=== PATIENT | male | born 1950 | race Caucasian/White ===

== ENCOUNTER 2023-03-24 08:48 | Outpatient (OUT) | payer MEDICARE, BC, SELFPAY ==
--- NOTE | 2023-03-24 08:59 | XR_ITS ---
[address] [address] Patient Name: JONATHAN ALMONTE MRN: [id number] date: 1950 Sex: M Assigned Patient Location: RAD Current Patient Location: [facility] Accession/Order Number: [id number] Exam Date: 03/24/2023 08:59 Report Date: 03/24/2023 09:54 At the request of: ANTONIO ROJAS Procedure: XR ankle RT min 3V EXAM: XR ankle RT min 3V HISTORY: RIGHT ANKLE PAIN COMPARISON: None. TECHNIQUE: 3 views FINDINGS/IMPRESSION: Status post total talus arthroplasty. No acute fracture or dislocation. Soft issue swelling. Electronically authenticated by: WADE LEONARDO Date: 03/24/2023 09:54
== END 2023-03-24 08:49 ==
PROVIDERS: PCP Family Medicine; Visit Provider Podiatrist Foot & Ankle Surgery
DX: M19.071 Primary osteoarthritis, right ankle and foot (principal)
CPT/HCPCS: 73610

== ENCOUNTER 2023-09-28 15:29 | Outpatient (REF) | payer MEDICARE, BC, SELFPAY | END 2023-09-29 15:27 | disposition home or self-care (01) | LOC: LAB 15:29 | PROVIDERS: PCP Family Medicine; Visit Provider Surgery | DX: D48.5 Neoplasm of uncertain behavior of skin (principal) | CPT/HCPCS: 88305 ==

== ENCOUNTER 2024-03-22 08:56 | Outpatient (OUT) | payer MEDICARE, BC, SELFPAY ==
--- NOTE | 2024-03-22 | XR_ITS ---
The [address] [address] Patient Name: JONATHAN ALMONTE MRN: [id number] date: 1950 Sex: M Assigned Patient Location: Current Patient Location: Accession/Order Number: [id number] Exam Date: 03/22/2024 09:56 Report Date: 03/23/2024 07:35 At the request of: ANTONIO ROJAS Procedure: XR ankle RT min 3V PROCEDURE: XR ankle RT min 3V HISTORY: RIGHT ANKLE PAIN COMPARISON: XR ankle right 03/24/2023 FINDINGS: BONES:Prior prosthetic replacement of the talus. No evidence of hardware fracture loosening. No bone fracture dislocation. Moderate size calcaneal plantar spur. SOFT TISSUES:Subcutaneous edema of the visible lower right leg. EFFUSION:None visible. OTHER: Negative. XR/XR ankle RT min 3V IMPRESSION: 1. Stable surgical changes without evidence of hardware failure or change in alignment. 2. Subcutaneous edema. Electronically authenticated by: AMA HORN Date: 03/23/2024 07:35
--- OUTSIDE RECORDS SUMMARY | 2024-03-22 08:59 | XMS_ITS | CCD ---
Author Organization [facility] Care Team Providers Care Household Chores Name Role Phone DR AMA HORN Consulting Unavailable ANTONIO ROJAS Attending Unavailable ANTONIO ROJAS Admitting Kosta RUBALCAVA ., DR PATEL Primary Care Unavailable ANTONIO ROJAS Consulting Unavailable Edwin Rubalcava Primary Care Physician Mynor DUARTE Attending Unavailable Mynor DUARTE Attending Unavailable Mynor DUARTE Attending Unavailable Medications Current Medications Medication Drug Class(es) Dates Sig (Normalized) Sig (Original) Ocuvite (3 sources) Vitamin C Start: 09-01-2023 take 1 tablet by mouth once daily Ocuvite 1 tab(s), Oral, Daily, Refill(s) 0 Start Date: 09/01/23 Status: Ordered Glucosamine (3 sources) Start: 09-01-2023 glucosamine Refills(s) 0 Start Date: 09/01/23 Status: Ordered Problems Active Problems Problem Classification Problem Date Documented Date Episodic/Chronic Neoplasms of unspecified nature or uncertain behavior (6 sources) Neoplasm of uncertain behavior of skin; Translations: [Neoplasm of uncertain behavior of skin] Onset: 09-07-2023 Episodic Osteoarthritis (3 sources) Osteoarthritis of knee 02-01-2015 Chronic Other nutritional; endocrine; and metabolic disorders (3 sources) Body mass index 30+ - obesity 09-07-2023 Chronic Other nutritional; endocrine; and metabolic disorders (3 sources) Obesity 09-01-2023 Chronic Unclassified (3 sources) 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 Past or Other Problems Problem Classification Problem Date Documented Da te Episodic/Chronic Other non-traumatic joint disorders (4 sources) Pain in right ankle and joints of right foot; Translations: [PAIN IN RIGHT ANKLE] Onset: 04-01-2022 Episodic Results Test Name Value Interpretation Reference Range Facil ity Pathology Noteon 10-12-2023 Pathology Note [id number] .00TIFF [facility] Ambulatory Visit Summaryon 1 12-06-2022 Ambulatory Visit Summary JONATHAN ALMONTE :1950 Visit Date:10/05/2023 Ambulatory Visit Instructions Your Diagnosis Neoplasm of uncertain behavior of skin of nose Your Care Team Attending Physician - GERALD BLUNT, Mynor Davalos Primary Care Physician - Edwin Rubalcava MD This Is Your Medications List Contact prescribing physician if questions or concerns glucosamine multivitamin with minerals (Ocuvite) Procedures Performed Excision of skin lesion (09/28/2023), right knee arthroscopy, medial meniscectomy, chondroplasty medial and patellofemoral (02/13/2015), Arthroplasty of right ankle, Repair of left inguinal hernia. Medications What How Much When Instructions Unchanged glucosamine Contact prescribing physician if questions or concerns Unchanged multivitamin with minerals (Ocuvite) 1 Tablets By Mouth Every day Contact prescribing physician if questions or concerns Allergies No Known Allergies Problems Ongoing - Any problem that you are currently receiving treatment for. BMI 31.0-31.9,adult Neoplasm of uncertain behavior of skin of nose OA - Osteoarthritis of knee Obesity Pigmented nevus Patient Survey You may receive a survey via text or e-mail asking about your office visit. Please share your experience with us by completing your survey. We appreciate your feedback and thank you for choosing us for your care. [facility] General Surgery Office/Clini c Noteon 10-05-2023 General Surgery Office/Clinic Note Chief Complaint f/u in-office excisional biopsy HPI Staff 7 day post operative follow up post in-office excisional biopsy right nares. Denies discomfort, bleeding or drainage. Sutures intact. History of Present Illness 1 week s/p excision raised lesion right nares; pathology pending; Review of Systems ROS - Provider Constitutional: no fever, no sweats, no weight loss. Eyes: no glasses, no blurred vision, no visual loss. ENMT: no dentures, no hoarseness, no swallowing difficulties, no hearing loss, no ear infection(s), no nose bleeds. Cardiovascular: normal blood pressure, no chest pain, regular heartbeat, no heart murmur. Respiratory: no shortness of breath, no cough, no asthma, no wheezing. Gastrointestinal: no nausea, no vomiting, no diarrhea, no constipation, no blood in stool, no change in bowel habits, no abdominal pain, no hepatitis. Genitourinary: no kidney stones, no urine infection, no dysuria. Musculoskeletal: no pain, no weakness. Skin: no changing moles, no rash, no skin lumps. Neurologic: no seizures, no epilepsy, no headache. Psychiatric: no emotional or psychiatric problem. Heme/Lymph: no bleeding problems, no anemia, no blood clots, no transfusions. Allergy/Immunologic: no swollen lymph nodes/glands, no IV drug abuse. Other: Additional ROS info: Except as noted in the above Review of Systems and in the History of Present Illness, all other systems have been reviewed and are negative or noncontributory. Physical Exam skin: incision well-healed, no erythema or drainage, no ecchymosis. Assessment/Plan 1. Neoplasm of uncertain behavior of skin of nose (D48.5: Neoplasm of uncertain behavior of skin) sutures removed, doing well; will call patient with pathology results, call sooner if problems/questions. Follow-up No qualifying data available Problem List/Past Medical History Ongoing BMI 31.0-31.9,adult Neoplasm of uncertain behavior of skin of nose OA - Osteoarthritis of knee Obesity Pigmented nevus Historical No qualifying data Procedure/Surgical History Excision of skin lesion (09/28/2023), right knee arthroscopy, medial meniscectomy, chondroplasty medial and patellofemoral (02/13/2015), Arthroplasty of right ankle, Repair of left inguinal hernia. Medications glucosamine Ocuvite, 1 tab(s), Oral, Daily Allergies No Known Allergies Social History Alcohol Current, Beer, Daily, 1 drinks/episode average. 2.00 drinks/episode maximum. Previous treatment: None. Alcohol use interferes with work or home: No. Drinks more than intended: Yes. Others hurt by drinking: No. Ready to change: No. Household alcohol concerns: No., 02/01/2015 Substance Abuse - Denies Substance Abuse, 02/01/2015 Tobacco - Denies Tobacco Use, 02/01/2015 Never (less than 100 in lifetime) Tobacco Use:. Never Smokeless Tobacco Use:., 09/07/2023 Family History Gastric cancer: Father. Heart disease: Mother. Immunizations Vaccine Date Status Comments influenza virus vaccine, inactivated - Not Given Patient Refuses Normal [facility] Comment on above: Result Comment: Elec tronically Signed By: GERALD BLUNT, Mynor Herring\Date and Time Signed: 10/05/23 15:49 EST General Surgery Office/Clini c Noteon 09-28-2023 General Surgery Office/Clinic Note Chief Complaint in-office excisional biopsy HPI Staff Presents for in-office excisional biopsy right nostril. History of Present Illness patient here for excisional biopsy painful right nares lesion; no change since recent evaluation. Review of Systems ROS - Provider Constitutional: no fever, no sweats, no weight loss. Eyes: no glasses, no blurred vision, no visual loss. ENMT: no dentures, no hoarseness, no swallowing difficulties, no hearing loss, no ear infection(s), no nose bleeds. Cardiovascular: normal blood pressure, no chest pain, regular heartbeat, no heart murmur. Respiratory: no shortness of breath, no cough, no asthma, no wheezing. Gastrointestinal: no nausea, no vomiting, no diarrhea, no constipation, no blood in stool, no change in bowel habits, no abdominal pain, no hepatitis. Genitourinary: no kidney stones, no urine infection, no dysuria. Musculoskeletal: no pain, no weakness. Skin: no changing moles, no rash, yes skin lumps. Neurologic: no seizures, no epilepsy, no headache. Psychiatric: no emotional or psychiatric problem. Heme/Lymph: no bleeding problems, no anemia, no blood clots, no transfusions. Allergy/Immunologic: no swollen lymph nodes/glands, no IV drug abuse. Other: Additional ROS info: Except as noted in the above Review of Systems and in the History of Present Illness, all other systems have been reviewed and are negative or noncontributory. Physical Exam skin: 5 mm raised, exophytic, lesion right nares; no ulceration or bleeding Procedure patient brought to the procedure room, placed in supine position, area prepped and draped in sterile fashion; anesthetized with 1 % lidocaine; lesion excised in elliptical fashion down to subcutaneous fat, total length 6 mm; closed with interrupted 5-0 nylon sutures; tolerated well; ebl < 3 ml; sterile dressing applied. Assessment/Plan 1. Neoplasm of uncertain behavior of skin of nose (D48.5: Neoplasm of uncertain behavior of skin) excised under local anesthesia, tolerated well; f/u in 7-10 days for suture removal/pathology results; call sooner if problems/questions. Follow-up No qualifying data available Problem List/Past Medical History Ongoing BMI 31.0-31.9,adult Neoplasm of uncertain behavior of skin of nose OA - Osteoarthritis of knee Obesity Pigmented nevus Historical No qualifying data Procedure/Surgical History right knee arthroscopy, medial meniscectomy, chondroplasty medial and patellofemoral (02/13/2015), Arthroplasty of right ankle, Repair of left inguinal hernia. Medications glucosamine Ocuvite, 1 tab(s), Oral, Daily Allergies No Known Allergies Social History Alcohol Current, Beer, Daily, 1 drinks/episode average. 2.00 drinks/episode maximum. Previous treatment: None. Alcohol use interferes with work or home: No. Drinks more than intended: Yes. Others hurt by drinking: No. Ready to change: No. Household alcohol concerns: No., 02/01/2015 Substance Abuse - Denies Substance Abuse, 02/01/2015 Tobacco - Denies Tobacco Use, 02/01/2015 Never (less than 100 in lifetime) Tobacco Use:. Never Smokeless Tobacco Use:., 09/07/2023 Family History Gastric cancer: Father. Heart disease: Mother. Immunizations Vaccine Date Status Comments influenza virus vaccine, inactivated - Not Given Patient Refuses Normal [facility] Comment on above: Result Comment: Elec tronically Signed By: GERALD BLUNT, Mynor Davalos\.br\Date and Time Signed: 09/28/23 15:28 EST Facesheeton 09-08-2023 Facesheet [id number] 1.00TIFF Normal [facility] Ambulatory Visit Summaryon 1 11-07-2022 Ambulatory Visit Summary JONATHAN ALMONTE :1950 Visit Date:09/07/2023 Ambulatory Visit Instructions Your Care Team Attending Physician - GERALD BLUNT, Mynor Davalos Primary Care Physician - Edwin Rubalcava MD This Is Your Medications List Contact prescribing physician if questions or concerns glucosamine multivitamin with minerals (Ocuvite) Procedures Performed right knee arthroscopy, medial meniscectomy, chondroplasty medial and patellofemoral (02/13/2015), Arthroplasty of right ankle, Repair of left inguinal hernia. Discharge Vitals Heart Rate (Peripheral) 76 Respiratory Rate 16 Blood Pressure 144/86 Height 182.8 cm Height 72 in Weight 103.7 kg Weight 228.14 lb BMI 31.03 Medications What How Much When Instructions Unchanged glucosamine Contact prescribing physician if questions or concerns Unchanged multivitamin with minerals (Ocuvite) 1 Tablets By Mouth Every day Contact prescribing physician if questions or concerns Medications and Immunizations Administered Not Given influenza virus vaccine, inactivated, Patient Refuses Allergies No Known Allergies Problems Ongoing - Any problem that you are currently receiving treatment for. BMI 31.0-31.9,adult OA - Osteoarthritis of knee Obesity Pigmented nevus Patient Survey You may receive a survey via text or e-mail asking about your office visit. Please share your experience with us by completing your survey. We appreciate your feedback and thank you for choosing us for your care. [facility] Physician Referralon 023 Physician Referral [id number] .00TIFF [facility] Vital Signs Date Time Vital Sign Value Performing Clinician Farooq jones 09-07-2023 13:38-0500 Blood Pressure Location Mynor Gale [facility] 09-07-2023 13:38-0500 Diastolic blood pressure 86 mm[Hg] Mynor DUARTE [facility] 09-07-2023 13:38-0500 Heart rate 76 /min Mynor DUARTE [facility] 09-07-2023 13:38-0500 Respiratory rate 16 /min Mynor DUARTE [facility] 09-07-2023 13:38-0500 Systolic blood pressure 144 mm[Hg] Mynor DUARTE [facility] Encounters Encounter Date Encounter Type Care Provider Facility Start: 10-05-2023 End: 10-06-2023 ambulatory Mynor DUARTE Facility:[facility] Start: 10-05-2023 End: 10-05-2023 Patient encounter procedure Mynor R VIANEYL [facility] Start: 09-28-2023 End: 09-29-2023 ambulatory Mynor R NILL Facility:[facility] Start: 09-28-2023 End: 09-28-2023 Patient encounter procedure Mynor R NILL [facility] Start: 09-07-2023 End: 09-08-2023 ambulatory Mynor R NILL Facility: [facility] Start: 09-07-2023 End: 09-07-2023 Patient encounter procedure Mynor R NILL [facility] Start: 09-02-2023 ambulatory Mynor DUARTE Facility:[facility] Start: 08-25-2023 ambulatory Mynor DUARTE Facility:[facility] Start: 04-01-2022 End: 04-02-[address] AMA HORN Facility:[facility] Procedures Date Procedure Procedure Detail Performing Clinician Start: 09-28-2023 Excision of lesion of skin Mynor WINTERSL Comment on above: right nares Start: 02-13-2015 right knee arthrosco py, medial meniscectomy, chondroplasty medial and patellofemoral Mynor VIANEYL Arthroplasty of right ankle Mynor WINTERSL Repair of left ingui nal hernia Mynor WINTERSL Immunizations Immunization Date Immunization Notes Care Provider Fa cility NEGATED: Highlighted row has not occurred!09-07-2023 influenza virus vaccine, unspecified formulation Mynor WINTERSL [facility] Payers Date Payer Category Payer Medicare [id number] 1958 Unknown [id number] 1950 Unknown [id number] 1950 Unknown [id number] 1950 Unknown [id number] [id number] 1950 Unknown [id number] [id number] Medicare [id number] Unknown [id number] Social History Date Type Detail Facility Start: 09-07-2023 Tobacco smoking status Never s moked tobacco (finding) [facility] Tobacco smoking status Never Gener [facility] Sex Assigned At Male [facility] Functional Status Date Assessment Result Facility 09-07-2023 Functional Status N/A [facility] Clinical Note 09-07-2023 Note Date & Type Note Facility 09-07-2023 Note Chief Complaint consultation for skin lesion HPI Staff 73 year old male presents on consultation fro Dr. Rubalcava for skin lesion to right nostril. Reports he noted lesion approximately 4-6 weeks ago. Denies change since first noted. Occasional soreness and bleeding when bumped. History of Present Illness 73 yo male referred for sore lesion right nostril; patient reports 5 week h/o raised irregular nodule, sore if he rubs it, bleeds occasionally; no increase in size; no personal h/o skin cancer; h/o extensive sun exposure; no asa or NSAID use; no tobacco use. Review of Systems PHQ Score Initial Depression Screen Score: 0 SCORE ROS - Provider Constitutional: no fever, no sweats, no weight loss. Eyes: no glasses, no blurred vision, no visual loss. ENMT: no dentures, no hoarseness, no swallowing difficulties, no hearing loss, no ear infection(s), no nose bleeds. Cardiovascular: normal blood pressure, no chest pain, regular heartbeat, no heart murmur. Respiratory: no shortness of breath, no cough, no asthma, no wheezing. Gastrointestinal: no nausea, no vomiting, no diarrhea, no constipation, no blood in stool, no change in bowel habits, no abdominal pain, no hepatitis. Genitourinary: no kidney stones, no urine infection, no dysuria. Musculoskeletal: no pain, no weakness. Skin: no changing moles, no rash, no skin lumps. Neurologic: no seizures, no epilepsy, no headache. Psychiatric: no emotional or psychiatric problem. Heme/Lymph: no bleeding problems, no anemia, no blood clots, no transfusions. Allergy/Immunologic: no swollen lymph nodes/glands, no IV drug abuse. Other: Additional ROS info: Except as noted in the above Review of Systems and in the History of Present Illness, all other systems have been reviewed and are negative or noncontributory. Physical Exam Vitals & Measurements HR: 76(Peripheral) RR: 16 BP: 144/86 HT: 72 in HT: 182.8 cm WT: 103.7 kg WT: 228.14 lb BMI: 31.03 HEENT: normal conjunctiva, sclera clear, no scleral icterus, EOM intact, PERRLA, oral mucosa moist without lesions. Neck: trachea midline, no mass, symmetric, no thyromegaly or nodules, no adenopathy Musculoskeletal: normal gait, digits and nails without infection, nodes, cyanosis, clubbing. Skin: no rashes, 4 mm raised, keratotic lesion right nares, no ulceration or scab; no pigmentation no ulcers, no subcutaneous nodules, induration. Psychiatric/Neuro: oriented to time, place, person, judgement normal, affect appropriate for age, insight intact, no focal deficits. Tests: review of old records completed , Discussed surgical options, risks, and possible complications with patient. Assessment/Plan 1. Neoplasm of uncertain behavior of skin of nose (D48.5: Neoplasm of uncertain behavior of skin) plan excisional biopsy under local anesthesia in the office for definitive diagnosis and treatment, informed consent obtained. Follow-up No qualifying data available Problem List/Past Medical History Ongoing BMI 31.0-31.9,adult Neoplasm of uncertain behavior of skin of nose OA - Osteoarthritis of knee Obesity Pigmented nevus Historical No qualifying data Procedure/Surgical History right knee arthroscopy, medial meniscectomy, chondroplasty medial and patellofemoral (02/13/2015), Arthroplasty of right ankle, Repair of left inguinal hernia. Medications glucosamine Ocuvite, 1 tab(s), Oral, Daily Allergies No Known Allergies Social History Alcohol Current, Beer, Daily, 1 drinks/episode average. 2.00 drinks/episode maximum. Previous treatment: None. Alcohol use interferes with work or home: No. Drinks more than intended: Yes. Others hurt by drinking: No. Ready to change: No. Household alcohol concerns: No., 02/01/2015 Substance Abuse - Denies Substance Abuse, 02/01/2015 Tobacco - Denies Tobacco Use, 02/01/2015 Never (less than 100 in lifetime) Tobacco Use:. Never Smokeless Tobacco Use:., 09/07/2023 Family History Gastric cancer: Father. Heart disease: Mother. Immunizations Vaccine Date Status Comments influenza virus vaccine, inactivated - Not Given Patient Refuses [facility] Comment on above: Result Comment: Elec tronically Signed By: GERALD BLUNT, Mynor Davalos\.br\Date and Time Signed: 09/07/23 14:00 EST Clinical Note 04-02-2022 Note Date & Type Note Facility 04-02-2022 Note PROCEDURE: XR ANKLE RT MIN 3 VIEWS HISTORY: Pain of right ankle joint COMPARISON: XR ankle right 04/03/2021 FINDINGS: BONES:Prior prosthetic replacement of the talus; no evidence of hardware fracture, loosening, or change in alignment. No bone fracture dislocation. Prominent calcaneal plantar spur. SOFT TISSUES:No visible soft tissue swelling. EFFUSION:None visible. OTHER: Negative. IMPRESSION: 1. Stable surgical changes without evidence of hardware failure. Electronically authenticated by: AMA HORN Date: 2022-04-02 08:38 [facility] Evaluation + Plan note Note Date & Type Note Facility Evaluation + Plan note Future Appointments Appointment Date:09/28/2023 03:00:00 PM Scheduled Provider:Mynor DUARTE MD Location:[facility] Appointment Type: Procedure 30 [facility] Evaluation + Plan note Note Date & Type Note Facility Evaluation + Plan note Future Appointments Appointment Date:10/05/2023 03:40:00 PM Scheduled Provider:Mynor DUARTE MD Location:[facility] Appointment Type: Established 15 [facility] Hospital course Narrative Note Date & Type Note Facility Hospital course Narrative No data available for this section [facility] Discharge instructions Note Date & Type Note Facility Hospital Discharge instructions No data available for this section [facility] Progress note Note Date & Type Note Facility Progress note No data available for this section [facility] Summary Purpose Family History No Family History Records Found No data available for this section No data available for this section No data available for this section No Family History Records Found Advance Directives No Advanced Directives Records FoundNo Advanced Directives Records Found Additional Source Comments (unrecognized sect ion and content) No Status Records FoundNo Status Records Found INFORMATION SOURCE (unrecogn ized section and content) DATE CREATED AUTHOR 03/26/2023 [facility] DATE CREATED AUTHOR AUTHOR'S ORGANIZ ATION 10/13/2023 [facility] Patient Care team informatio n (unrecognized section and content) Personnel Name: Edwin Rubalcava MD Address: Address: [address] [place] [address] Personnel Name: Edwin Rubalcava MD Address: Address: [address] [place] [address] Personnel Name: Edwin Rubalcava MD Address: Address: [address] [place] [address] FOR RECORDS PERTAINING TO PATIENTS WHO ARE OR HAVE BEEN ENROLLED IN A CHEMICAL DEPENDENCY/SUBSTANCEABUSE PROGRAM, SOME INFORMATION MAY BE OMITTED. This clinical summary was aggregated from multiple sources. Caution should be exercised in using it in the provision of clinical care. This summary normalizes information from multiple sources, and as a consequence, information in this document may materially change the coding, format and clinical context of patient data. In addition, data may be omitted in some cases. CLINICAL DECISIONS SHOULD BE BASED ON THE PRIMARY CLINICAL RECORDS. [facility]. provides no warranty or guarantee of the accuracy or completeness of information in this document.
== END 2024-03-22 08:57 | disposition home or self-care (01) ==
LOC: EC 08:56
PROVIDERS: PCP Family Medicine; Visit Provider Podiatrist Foot & Ankle Surgery
DX: M19.071 Primary osteoarthritis, right ankle and foot (principal); Z96.661 Presence of right artificial ankle joint
CPT/HCPCS: 73610

== ENCOUNTER 2024-08-23 10:37 | Outpatient (OUT) | payer MEDICARE, BC, SELFPAY ==
--- NOTE | 2024-08-23 | XR_ITS ---
[address] [address] Patient Name: JONATHAN ALMONTE MRN: [id number] date: 1950 Sex: M Assigned Patient Location: [facility] Current Patient Location: PT Accession/Order Number: [id number] Exam Date: 08/23/2024 10:50 Report Date: 08/25/2024 12:54 At the request of: ANTONIO ROJAS Procedure: XR ankle RT min 3V PROCEDURE: XR ankle RT min 3V, XR foot RT min 3V HISTORY: RIGHT ANKLE PAIN ; right foot pain; right first toe injury; swelling COMPARISON: XR ankle 03/22/2024 FINDINGS: BONES:Prior prosthetic replacement of the talus; no appreciable hardware fracture or displacement. Moderate degenerative changes of the first tarsal phalangeal joint. Moderate degenerative changes of the first toe interphalangeal joint. Multifocal mild degenerative joint disease. SOFT TISSUES:Soft tissue swelling first toe. EFFUSION:None visible. OTHER: Negative. XR/XR ankle RT min 3V IMPRESSION: 1. 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 2. Mild-moderate degenerative changes of the midfoot and forefoot, most notable involving the first toe. 3. No acute bone abnormality. Electronically authenticated by: AMA HORN Date: 08/25/2024 12:54
--- NOTE | 2024-08-23 | XR_ITS ---
[address] [address] Patient Name: JONATHAN ALMONTE MRN: [id number] date: 1950 Sex: M Assigned Patient Location: [facility] Current Patient Location: Accession/Order Number: [id number] Exam Date: 08/23/2024 10:50 Report Date: 08/25/2024 12:54 At the request of: ANTONIO ROJAS Procedure: XR foot RT min 3V PROCEDURE: XR ankle RT min 3V, XR foot RT min 3V HISTORY: RIGHT ANKLE PAIN ; right foot pain; right first toe injury; swelling COMPARISON: XR ankle 03/22/2024 FINDINGS: BONES:Prior prosthetic replacement of the talus; no appreciable hardware fracture or displacement. Moderate degenerative changes of the first tarsal phalangeal joint. Moderate degenerative changes of the first toe interphalangeal joint. Multifocal mild degenerative joint disease. SOFT TISSUES:Soft tissue swelling first toe. EFFUSION:None visible. OTHER: Negative. XR/XR foot RT min 3V IMPRESSION: 1. 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 2. Mild-moderate degenerative changes of the midfoot and forefoot, most notable involving the first toe. 3. No acute bone abnormality. Electronically authenticated by: AMA HORN Date: 08/25/2024 12:54
--- OUTSIDE RECORDS SUMMARY | 2024-08-23 10:53 | XMS_ITS | CCD ---
Author Organization [facility] Care Team Providers Care Breakfast And Room Attendant Name Role Phone DR AMA HORN Consulting [...] Facil ity Pathology Noteon 10-12-2023 Pathology Note [id number]#1 .00TIFF [facility] Ambulatory Visit Summaryon 1 12-06-2022 Ambulatory Visit [...] you for choosing us for your care. [facility] General Surgery Office/Clini c Noteon 10-05-2023 General [...] - Not Given Patient Refuses Normal [facility] Comment on above: Result Comment: Elec tronically [...] inactivated - Not Given Patient Refuses Normal [facility] Comment on above: Result Comment: Elec tronically Signed By: GERALD BLUNT, Mynor Davalos\.br\Date and Time Signed: 09/28/23 15:28 EST Facesheeton 09-08-2023 Facesheet [id number]# 1.00TIFF Normal [facility] Ambulatory Visit Summaryon 1 11-07-2022 Ambulatory Visit [...] you for choosing us for your care. [facility] Physician Referralon 023 Physician Referral [id number]#1 .00TIFF [facility] Vital Signs Date Time Vital Sign Value Performing Clinician Farooq jones 09-07-2023 13:38-0500 Blood Pressure Location Mynor Gale [facility] 09-07-2023 13:38-0500 Diastolic blood pressure 86 mm[Hg] Mynor DUARTE [facility] 09-07-2023 13:38-0500 Heart rate 76 /min Mynor DUARTE [facility] 09-07-2023 13:38-0500 Respiratory rate 16 /min Mynor DUARTE [facility] 09-07-2023 13:38-0500 Systolic blood pressure 144 mm[Hg] Mynor DUARTE [facility] Encounters Encounter Date Encounter Type Care Provider Facility Start: 10-05-2023 End: 10-06-2023 ambulatory Mynor DUARTE Facility:[facility] Start: 10-05-2023 End: 10-05-2023 Patient encounter procedure Mynor R VIANEYL [facility] Start: 09-28-2023 End: 09-29-2023 ambulatory Mynor R NILL Facility:[facility] Start: 09-28-2023 End: 09-28-2023 Patient encounter procedure Mynor R NILL [facility] Start: 09-07-2023 End: 09-08-2023 ambulatory Mynor R NILL Facility: [facility] Start: 09-07-2023 End: 09-07-2023 Patient encounter procedure Mynor R NILL [facility] Start: 09-02-2023 ambulatory Mynor DUARTE Facility:[facility] [...] vaccine, unspecified formulation Mynor WINTERSL [facility] Payers Date Payer Category Payer Medicare [id number] 1958 Unknown [id number] 1950 Unknown [id number] 2.16.84 [id number] 1950 Unknown [id number] 2.16.8 [id number] 1950 Unknown [id number] 2.16.8 [id number] 1950 Unknown [id number] 2.16.8 [id number] Medicare [id number] Unknown [id number] Social History Date Type Detail Facility Start: 09-07-2023 Tobacco smoking status Never s moked tobacco (finding) [facility] Tobacco smoking status Never Gener al [facility] Sex Assigned At Male [facility] Functional Status Date Assessment Result Facility 09-07-2023 Functional Status N/A [facility] Clinical Note 09-07-2023 Note Date & Type [...] vaccine, inactivated - Not Given Patient Refuses [facility] Comment on above: Result Comment: Elec tronically [...] authenticated by: AMA HORN Date: 2022-04-02 08:38 [facility] Evaluation + Plan note Note Date & Type Note Facility Evaluation + Plan note Future Appointments Appointment Date:09/28/2023 03:00:00 PM Scheduled Provider:Mynor DUARTE MD Location:[facility] Appointment Type: Procedure 30 [facility] Evaluation + Plan note Note Date & Type Note Facility Evaluation + Plan note Future Appointments Appointment Date:10/05/2023 03:40:00 PM Scheduled Provider:Mynor DUARTE MD Location:[facility] Appointment Type: Established 15 [facility] Hospital course Narrative Note Date & Type Note Facility Hospital course Narrative No data available for this section [facility] Discharge instructions Note Date & Type [...] DATE CREATED AUTHOR AUTHOR'S ORGANIZ ATION 10/13/2023 [facility] Patient Care team informatio n (unrecognized section and content) Personnel Name: Edwin Rubalcava MD Address: Address: [address] [place] [address] Personnel Name: Edwin Rubalcava MD Address: Address: [address] [place] [address] Personnel Name: Edwin Rubalcava MD Address: Address: [address] [place] [address] FOR RECORDS PERTAINING TO PATIENTS WHO ARE [...] BE BASED ON THE PRIMARY CLINICAL RECORDS. [facility] [employer] [facility]. provides no warranty or guarantee of the accuracy or completeness of information in this document.
== END 2024-08-23 10:38 | disposition home or self-care (01) ==
LOC: RAD 10:37
PROVIDERS: PCP Family Medicine; Visit Provider Podiatrist Foot & Ankle Surgery
DX: M25.571 Pain in right ankle and joints of right foot (principal); Z96.661 Presence of right artificial ankle joint
CPT/HCPCS: 73610; 73630

== ENCOUNTER 2024-08-28 12:48 | Outpatient (RCR) | payer MEDICARE, BC, SELFPAY | END 2024-09-06 15:40 | disposition home or self-care (01) | LOC: PT 12:48 | PROVIDERS: PCP Family Medicine; Visit Provider Podiatrist Foot & Ankle Surgery | DX: M25.571 Pain in right ankle and joints of right foot (principal); R26.89 Other abnormalities of gait and mobility | CPT/HCPCS: 97110; 97161 ==

== ENCOUNTER 2024-08-28 14:04 | Outpatient (OUT) | payer MEDICARE, BC, SELFPAY ==
--- NOTE | 2024-08-28 14:08 | CT_ITS ---
[address] [address] Patient Name: JONATHAN ALMONTE MRN: [id number] date: 1950 Sex: M Assigned Patient Location: CT Current Patient Location: CT Accession/Order Number: [id number] Exam Date: 08/28/2024 14:13 Report Date: 08/28/2024 16:18 At the request of: ANTONIO ROJAS Procedure: CT ankle RT wo con EXAMINATION: CT ankle RT wo con HISTORY: Talus Fracture Sequla COMPARISON: 08/23/2024 TECHNIQUE: Multi-planar CT images were created without IV contrast. Dose reduction techniques were achieved by using automated exposure control and/or adjustment of mA and/or kV according to patient size and/or use of iterative reconstruction technique. FINDINGS: BONES: Talus replacement. No acute fracture, dislocation or mechanical failure. Subchondral cystic changes of the tibial plafond and likely represent degenerative change. Permeative pattern of the bones suggests underlying osteopenia. SOFT TISSUES: Negative. No visible soft tissue swelling. EFFUSION: None visible. OTHER: Negative. CT/CT ankle RT wo con IMPRESSION: Interval progression of degenerative changes of the talar dome Electronically authenticated by: PARADISE URIAS Date: 08/28/2024 16:18
--- OUTSIDE RECORDS SUMMARY | 2024-08-28 14:18 | XMS_ITS | CCD ---
Author Organization [facility] Care Team Providers Care Metalsmith Helper Name Role Phone DR AMA HORN Consulting [...] Facil ity Pathology Noteon 10-12-2023 Pathology Note [id number]#1 .00TIFF [facility] Ambulatory Visit Summaryon 1 12-06-2022 Ambulatory [...] you for choosing us for your care. [facility] General Surgery Office/Clini c Noteon 10-05-2023 [...] - Not Given Patient Refuses Normal [facility] Comment on above: Result Comment: Elec tronically [...] inactivated - Not Given Patient Refuses Normal [facility] Comment on above: Result Comment: Elec tronically Signed By: GERALD BLUNT, Mynor Davalos\.br\Date and Time Signed: 09/28/23 15:28 EST Facesheeton 09-08-2023 Facesheet [id number]# 1.00TIFF Normal [facility] Ambulatory Visit Summaryon 1 11-07-2022 Ambulatory [...] you for choosing us for your care. [facility] Physician Referralon 023 Physician Referral [id number]#1 .00TIFF [facility] Vital Signs Date Time Vital Sign Value Performing Clinician Farooq jones 09-07-2023 13:38-0500 Blood Pressure Location Mynor Gale [facility] 09-07-2023 13:38-0500 Diastolic blood pressure 86 mm[Hg] Mynor DUARTE [facility] 09-07-2023 13:38-0500 Heart rate 76 /min Mynor DUARTE [facility] 09-07-2023 13:38-0500 Respiratory rate 16 /min Mynor DUARTE [facility] 09-07-2023 13:38-0500 Systolic blood pressure 144 mm[Hg] Mynor DUARTE [facility] Encounters Encounter Date Encounter Type Care Provider Facility Start: 10-05-2023 End: 10-06-2023 ambulatory Mynor DUARTE Facility:[facility] Start: 10-05-2023 End: 10-05-2023 Patient encounter procedure Mynor R VIANEYL [facility] Start: 09-28-2023 End: 09-29-2023 ambulatory Mynor R NILL Facility:[facility] Start: 09-28-2023 End: 09-28-2023 Patient encounter procedure Mynor R NILL [facility] Start: 09-07-2023 End: 09-08-2023 ambulatory Mynor R NILL Facility: [facility] Start: 09-07-2023 End: 09-07-2023 Patient encounter procedure Mynor R NILL [facility] Start: 09-02-2023 ambulatory Mynor DUARTE Facility:[facility] [...] vaccine, unspecified formulation Mynor WINTERSL [facility] Payers Date Payer Category Payer Medicare [id number] 1958 Unknown [id number] 1950 Unknown [id number] 2.16.84 [id number] 1950 Unknown [id number] 2.16.8 [id number] 1950 Unknown [id number] 2.16.8 [id number] 1950 Unknown [id number] 2.16.8 [id number] Medicare [id number] Unknown [id number] Social History Date Type Detail Facility Start: 09-07-2023 Tobacco smoking status Never s moked tobacco (finding) [facility] Tobacco smoking status Never [facility] Sex Assigned At Male [facility] Functional Status Date Assessment Result Facility 09-07-2023 Functional Status N/A [facility] Clinical Note 09-07-2023 Note Date & Type [...] vaccine, inactivated - Not Given Patient Refuses [facility] Comment on above: Result Comment: Elec [...] authenticated by: AMA HORN Date: 2022-04-02 08:38 [facility] Evaluation + Plan note Note Date & Type Note Facility Evaluation + Plan note Future Appointments Appointment Date:09/28/2023 03:00:00 PM Scheduled Provider:Mynor DUARTE MD Location:[facility] Appointment Type: Procedure 30 [facility] Evaluation + Plan note Note Date & Type Note Facility Evaluation + Plan note Future Appointments Appointment Date:10/05/2023 03:40:00 PM Scheduled Provider:Mynor DUARTE MD Location:[facility] Appointment Type: Established 15 [facility] Hospital course Narrative Note Date & Type Note Facility Hospital course Narrative No data available for this section [facility] Discharge instructions Note Date & Type [...] DATE CREATED AUTHOR AUTHOR'S ORGANIZ ATION 10/13/2023 [facility] Patient Care team informatio n (unrecognized section and content) Personnel Name: Edwin Rubalcava MD Address: Address: [address] [place] [address] Personnel Name: Edwin Rubalcava MD Address: Address: [address] [place] [address] Personnel Name: Edwin Rubalcava MD Address: Address: [address] [place] [address] FOR RECORDS PERTAINING TO PATIENTS WHO ARE [...] BE BASED ON THE PRIMARY CLINICAL RECORDS. [facility] [employer] [facility]. provides no warranty or guarantee of the accuracy or completeness of information in this document.
== END 2024-08-28 14:05 | disposition home or self-care (01) ==
LOC: CT 14:04
PROVIDERS: PCP Family Medicine; Visit Provider Podiatrist Foot & Ankle Surgery
DX: Z96.661 Presence of right artificial ankle joint (principal); M19.071 Primary osteoarthritis, right ankle and foot
CPT/HCPCS: 73700

== ENCOUNTER 2025-08-29 14:22 | Outpatient (OUT) | payer MEDICARE, BC, SELFPAY ==
--- OUTSIDE RECORDS SUMMARY | 2025-03-21 04:00 | XMS_ITS ---
Author Organization [facility] in [place] Address [address] [place] [address] Care Team Providers Care Coffee Break Attendant Name Role Phone Dharmesh Rubalcava Primary Care Provider [phone] Adan Hackett [phone] REASON FOR VISIT 1 year f/u Encounters Encounter Location Date Provider Diagnosis [facility] (PODIATRY) [address] [place] [address] [place] [address] 2025 Adan Jones Plan Of Treatment No Information Progress Notes * REYESAmandoDOB:1950 ( 75 yo M)Acc No.[id number]:2025 UNLOCKED PROGRESS NOTE Follow Up Patient: Angie RAFFIAmando Noyola :?Adan Jones DPM, MSDOB:1950???Age: 75 Y???Sex:MaleDate:2025Phone:[phone]:[address]-[address]Pcp:Dharmesh Rubalcava Subjective: * Chief Complaints: * 1 . 1 year f/u. * Medical History: Objective: * Vitals: Assessment: Plan: * Treatment: * * Electronic signature of Adan Jones DPM on 08/29/2025 at 02:25 PM ESTSign off status: PendingVisit Status:?CANC (Cancelled) * Provider: Lyudmila Jones DPM, MS Date: 0 2025 Generated for Printing/Faxing/eTransmitting on:?08/29/2025 02:25 PM EST
--- OUTSIDE RECORDS SUMMARY | 2025-08-28 04:30 | XMS_ITS ---
Author Organization [facility] [place] Address [address] [place] [address] Care Team Providers Care Gum Worker Name Role Phone Dharmesh Rubalcava Primary Care Provider [phone] Adan Hackett [phone] REASON FOR VISIT 1 year f/u Encounters Encounter Location Date Provider Diagnosis [facility] (PODIATRY) [address] [place] [address] [place] [address] 08/28/2025 Adan Jones Plan Of Treatment No Information Progress Notes * GAGE ReichantalDOB:1950 ( 75 yo M)Acc No.[id number]:08/28/2025 UNLOCKED PROGRESS NOTE Follow Up Patient: Angie RAFFIAmando Noyola :?Adan Jones DPM, MSDOB:1950???Age: 75 Y???Sex:MaleDate:08/28/2025Phone:[phone]:[address] [facility] [address], [place]Sxe:Dharmesh Rubalcava Subjective: * Chief Complaints: * 1 . 1 year f/u. * Medical History: Objective: * Vitals: Assessment: Plan: * Treatment: * * Electronic signature of Adan Jones DPM on 08/29/2025 at 02:26 PM ESTSign off status: PendingVisit Status:?OFF CANC (OFFICE CANCEL) * Provider: Lyudmila Jones DPM, MS Date: 1 10/28/2024 Generated for Printing/Faxing/eTransmitting on:?08/29/2025 02:26 PM EST
--- NOTE | 2025-08-29 | XR_ITS ---
[facility] [place] [id number] Patient Name: JONATHAN ALMONTE MRN: [id number] date: 1950 Sex: M Assigned Patient Location: [facility] Current Patient Location: Accession/Order Number: [id number] Exam Date: 08/29/2025 14:30 Report Date: 08/30/2025 08:15 At the request of: ANTONIO ROJAS DPM Procedure: XR ankle RT min 3V RIGHT ANKLE - 3 views CLINICAL DATA: Follow-up after talar replacement COMPARISON: CT 08/28/2024 AND PLAIN FILMS 08/23/2024 Weightbearing AP, lateral and oblique views were obtained. There is osteopenia. A talar prosthesis is again visualized. Appearance is unchanged. There is no developing fracture or dislocation. A plantar calcaneal spur is seen. There is diffuse soft tissue swelling and subcutaneous edema. XR/XR ankle RT min 3V IMPRESSION: STABLE TALAR PROSTHESIS. NO ACUTE BONY FINDINGS. Impression dictated by: Celeste Martinez M.D. 08/30/2025 8:15 AM Dictation Location: [place] [address] Electronically authenticated by: [id number] Y Date: 08/30/2025 08:15
--- OUTSIDE RECORDS SUMMARY | 2025-08-29 14:25 | XMS_ITS | Clinical Summary ---
Author Organization [facility] Address [address] [place] [address], [address] [place] [address] Care Team Providers Care Supply Chain Business Analyst Name Role Phone Unavailable Primary Care Provider Unavailabl e Social History Tobacco UseTypesPacks/DayYears UsedDateSmoking Tobacco: Never AssessedSex and Gender InformationValueDate RecordedSex Assigned at BirthNot on fileLegal Sex Male01/31/2015 6:48 AM EDTGender IdentityNot on fileSexual OrientationNot on file Plan of Treatment Not on file
--- OUTSIDE RECORDS SUMMARY | 2025-08-29 14:26 | XMS_ITS | Patient Health Record ---
Author Organization [facility] [place] Address [address] [place] [address] Care Team Providers Care Armature Winder Name Role Phone Dharmesh Rubalcava Primary Care Provider Adan Jones [phone] Allergies No Known Allergies Reason For Referral No Information Medications Medication SIG (Take, Route, Frequency, Duration) Notes Start Date End Date Status Eye Vitamins & Minerals ActiveGlucosamineActivemethylPREDNISolone 4 MGas directed Nzmbho864Active Social History Tobacco Use: Social History Observation Description Date Details (start date - stop date) Never Smoker NA - NA Tobacco Use/Smoking Question Answer Notes Patient is a nonsmoker Alcohol Screen (Audit-C) Question Answer Notes Did you have a drink containing alcohol in the p ast year? 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) ActiveconfirmedProblemArthralgia of the ankle and/or foot (547994751)Pain in right ankle and joints of right foot (M25.571)ActiveconfirmedProblemPresence of right artificial ankle joint (Z96.661)ActiveconfirmedProblemNevus (5568625040) Nevus (D22.9)ActiveconfirmedProblemDegenerative disorder of macula (902272703) AMD (age related macular degeneration) (H35.30)Activeconfirmed Vital Signs Heart Rate 86 /min 09/05/2024 Tyfowxywswb29.5 degrees Kszvyhglft16/19/5093Vmawxici46 %09/05/20245431Uwhngc78 in 09/05/2024 Encounters Encounter Location Date Provider Diagnosis [facility] (PODIATRY) [address] [place] [address] [place] [address] 09/05/2024 Adan Jones Displaced dome fracture of right talus, sequela S92.141S and Post-traumatic osteoarthritis, right ankle and foot M19.171 Assessments Encounter Date Diagnosis (ICD Code) Assessment Notes Treatment Notes Treatment Clinical Notes Section Notes 09/05/2024 Displaced dome fracture of right talus, sequela (ICD-10 - S92.141S) Patient is roughly 4-1/2 years 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 He has begun noticing worsening daily pain in his ankle and a CT scan was obtained which was reviewed with himtoday. I reviewed the CT scan with him and we discussed potential risks and benefits of surgical versus nonsurgical treatment. He may eventually require revision of his ankle but would like to postpone any major surgery for as long as possible which I agree with. I discussed utility of corticosteroid injections and the patient will call when he would like 1 of these. Otherwise he will follow-up for yearly surveillance x- rays yearly. At follow-up I would like weightbearing ankle x-rays09/05/2024ost- traumatic osteoarthritis, right ankle and foot (ICD-10 - M19.171) Plan Of Treatment Pending Test Test Name Order Date XR Ankle RT (3 views) * (161) 08/23/2024 CT Ankle RT w/o contrast * (Optional 3D Rendering) 08/23/2024 CT ANKLE RT WO CON 08/28/2024 XR ankle RT min 3V 08/25/2024 XR foot RT min 3V 08/25/2024 Insurance Providers Payer Name Payer Address Payer Phone Subscriber Number Group Number Insured Name Patient Relationship to Insured Coverage Start Date Coverage End Date [place] [address] [place] [address] [id number] Griselda Chamberself - patient is the [id number] MEDICARE SUPPLEMENTPO [address] [place] [id number], Gerard Self - patient is the [id number] 2018 Medical (General) History Medical History History ICD Code Displaced dome fracture of right talus, sequela S92.141S Talar dome fracture 03/2020 Surgical History Surgery Date(Month/Year) hernia repair gowgoifs2975avwja total talus- ankle05/06Hospitalization History Reason Date(Month/Year) see above
--- OUTSIDE RECORDS SUMMARY | 2025-08-29 14:34 | XMS_ITS | CCD ---
Author Organization [place] [facility] Care Team Providers Care Distance Education Coordinator Name Role Phone DR AMA HORN Consulting Unavailable ANTONIO ROJAS Attending Unavailable ANTONIO ROJAS Admitting Kosta RUBALCAVA ., DR PATEL Primary Care Unavailable ANTONIO ROJAS Consulting Unavailable Edwin Rubalcava Primary Care Physician Mynor DUARTE Attending Unavailable Mynor DUARTE Attending Unavailable Mynor DUARTE Attending Unavailable Medications Current Medications MedicationDrug Class(es)DatesSig (Normalized)Sig (Original)Ocuvite (3 sources)Vitamin CStart: 12-32-0025ivep 1 tablet by mouth once dailyOcuvite 1 tab(s), Oral, Daily, Refill(s) 0 Start Date: 09/01/23 Status: OrderedGlucosamine (3 sources)Start: 08-77-6190twewxmsvyso Refills(s) 0 Start Date: 09/01/23 Status: Ordered Problems Active Problems Problem ClassificationProblemDateDocumented DateEpisodic/ChronicNeoplasms of unspecified nature or uncertain behavior (6 sources)Neoplasm of uncertain behavior of skin; Translations: [Neoplasm of uncertain behavior of skin]Onset: 03-78-6199BmnhrzgtDlktynfkwfptkl (3 sources)Osteoarthritis of fxnb28-21-9006VjdhdegCvrhw nutritional; endocrine; and metabolic disorders (3 sources)Body mass index 30+ - ytistxm84-61-8050EhptidmQhprc nutritional; endocrine; and metabolic disorders (3 sources)Tezqlrt71-75-8741OwatmxiLnzsowxwbfoc (3 sources)Pigmented -20-8840 Past or Other Problems Problem ClassificationProblemDateDocumented DateEpisodic/ChronicOther non- traumatic joint disorders (4 sources)Pain in right ankle and joints of right foot; Translations: [PAIN IN RIGHT ANKLE]Onset: 65-65-6234Jaksihdx Results Test NameValueInterpretationReference RangeFacilityPathology Noteon 10-12-2023 Pathology [id number]#1.00TIFFNoMiami Valley HospitalAmbulatory Visit Summaryon 68-45-6832Tuyhwwnvgb Visit Summary JONATHAN ALMONTE :1950 Visit Date:10/05/2023 [...] you for choosing us for your care. [facility]/Clinic Noteon 28-63-3407Lctqfza Surgery Office/Clinic NoteChief Complaint f/u in-office excisional biopsy HPI Staff [...] swallowing difficulties, no hearing loss, no ear infection(s),no nose bleeds. Cardiovascular: normal blood pressure, no [...] virus vaccine, inactivated - Not Given Patient RefusesNoMiami Valley HospitalComment on above:Result Comment: Electronically Signed By: GERALD BLUNT, Mynor Herring\Date and Time Signed: 10/05/23 15:49 ESTGeneral Surgery Office/Clinic Noteon 45-32-9691Xrmeisw Surgery Office/Clinic NoteChief Complaint in-office excisional biopsy HPI Staff Presents [...] swallowing difficulties, no hearing loss, no ear infection(s),no nose bleeds. Cardiovascular: normal blood pressure, no [...] virus vaccine, inactivated - Not Given Patient RefusesNoMiami Valley HospitalComment on above:Result Comment: Electronically Signed By: Mynor DUARTE MD.br\Date and Time Signed: 09/28/23 15:28 ESTFacesheeton [id number]#1.00TIFFNorosalinda [facility]S Medical CenterAmbulatory Visit Summaryon 57-30-8684Oahktexzxc Visit Summary JONATHAN ALMONTE Aurelia :1950 Visit Date:09/07/2023 Ambulatory Visit Instructions Your Care Team Attending Physician - Mynor DUARTE MD Primary Care Physician - Edwin Rubalcava MD [...] you for choosing us for your care. [facility] HospitalPhysician Referralon 08-26-2023 Physician [id number]#1.00TIFKindred Hospital Lima Vital Signs Date TimeVital SignValuePerforming XrnejawqkYkrmxyfa19-98-2857 13:38-0500Blood Pressure LocationMichael NILL [facility] Surgery Nkgmtald95-38-6343 13:38-0500Diastolic blood mm[Hg]Mynor DUARTE [facility] Surgery Dxingtwy96-83-4878 13:38-0500Heart rate 76 /minMichael NILL [facility] Surgery Lsnblqve10-63-7530 13:38-0500 Respiratory rate16 /minMichael NILL [facility] Surgery Edgrypfc11-64-8997 13:38-0500Systolic blood vhhnzytv047 mm[Hg]Mynor NILL General Surgery [place] Encounters Encounter DateEncounter TypeCare ProviderFacilityStart: 10-05-2023 End: 75-03-0001xkfwuazrvgQtipzmg R NILLFacility:[facility]Start: 10-05-2023 End: 62-73-3840Djezojb encounter procedureMichael R NILL General Surgery Nill/[place] Start: 09-28-2023 End: 48-77-2388tmbqtypzfhUskqbek R NILLFacility:[facility] Hospitaltart: 09-28-2023 End: 59-78-5361Uajbbma encounter procedureMichael R NILL General Surgery N[facility] [place] Start: 09-07-2023 End: 01-01-6022ycbgyalelcRacslxf R NILLFacility: tart: 09-07-2023 End: 69-92-5231Dpxsidz encounter procedureMichael R NILL General Surgery N[facility] [place] Start: 47-28-3542fpzueczqzmTtkawib NILLFacility:[facility]Start: 20-95-0899vslcxwwagtTrsgzkv NILLFacility: AubriekStart: 04-01-2022 End: 04-49-1583vphyoeuzbnVX AMA R ZIEBERFacility:H1 Procedures DateProcedureProcedure DetailPerforming ClinicianStart: 94-96-1175Moqupfss of lesion of skinMichael NILL Comment on above:right naresStart: 25-74-6937ewemw knee arthroscopy, medial meniscectomy, chondroplasty medial and patellofemoral Mynor NILL Arthroplasty of right ankleMichael NILL Repair of left inguinal herniaMichael NILL Immunizations Immunization DateImmunizationNotesCare ProviderFacilityNEGATED: Highlighted row has not occurred!23-25-4036sffiyrniv virus vaccine, unspecified formulation Mynor DUARTE [facility] [place] Payers DatePayer CategoryPayerPolicy [id number] 1959Unknown [id number] Social History DateTypeDetailFacilityStart: 07-92-4414Wcclukr smoking statusNever smoked tobacco (finding)[facility]vueTobacco smoking statusNeverGeneral Surgery [place]vueSex [facility] Functional Status DksxWlchnebqutOvmzfdKxdfcohb06-75-9316Osnoroopbt StatusN/AGeneral Surgery [place] Clinical Note 09-07-2023 Note Date & ZtnfFywiQeuwjhdh92-29-1282 NoteChief Complaint consultation for skin lesion HPI Staff [...] swallowing difficulties, no hearing loss, no ear infection(s),no nose bleeds. Cardiovascular: normal blood pressure, no [...] in the office for definitive diagnosis and treatment,informed consent obtained. Follow-up No qualifying data available [...] virus vaccine, inactivated - Not Given Patient RefusesMercy Health St. Rita'S Medical CenterComment on above:Result Comment: Electronically Signed By: GERALD BLUNT, Mynor Herring\Date and Time Signed: 09/07/23 14:00 EST Clinical Note 04-02-2022 Note Date & UdrvEntjHtbuczsk72-25-4025 NotePROCEDURE: XR ANKLE RT MIN 3 VIEWS HISTORY: [...] Electronically authenticated by: AMA HORN Date: 2022-04-02 08:38[facility] Evaluation + Plan note Note Date & TypeNoteFacilityEvaluation + Plan note Future Appointments Appointment Date:09/28/2023 03:00:00 PM Scheduled Provider:Mynor DUARTE MD Location:[facility] Appointment Type: Procedure 30 General Surgery [place] Evaluation + Plan note Note Date & TypeNoteFacilityEvaluation + Plan note Future Appointments Appointment Date:10/05/2023 03:40:00 PM Scheduled Provider:Mynor DUARTE MD Location:[facility] Appointment Type:GS Established 15 [facility] [place] Hospital course Narrative Note Date & TypeNoteFacilityHospital course Narrative No data available for this section [facility] [place] Hospital Discharge instructions Note Date & TypeNoteFacilityHospital Discharge instructions No data available for this section [facility] [place] Progress note Note Date & TypeNoteFacilityProgress note No data available for this section General [facility] [place] Summary Purpose Family History No Family History [...] and content) DATE CREATED AUTHOR 03/26/2023 [facility] DATE CREATED AUTHOR AUTHOR'S ORGANIZ ATION 10/13/[address] [facility] Patient Care team informatio n (unrecognized section and content) Personnel Name: Edwin Rubalcava MD Address: Address: [address] [place] [address] Personnel Name: Edwin Rubalcava MD Address: Address: [address] [place] [address] Personnel Name: Edwin Rubalcava MD Address: Address: [address] [place] [address] FOR RECORDS PERTAINING TO PATIENTS WHO ARE [...] BE BASED ON THE PRIMARY CLINICAL RECORDS. [facility] HospitalP[facility] provides no warranty or guarantee of the accuracy or completeness of information in this document.
== END 2025-08-29 14:23 | disposition home or self-care (01) ==
LOC: RAD 14:22
PROVIDERS: PCP Family Medicine; Visit Provider Podiatrist Foot & Ankle Surgery
DX: M25.571 Pain in right ankle and joints of right foot (principal); Z96.661 Presence of right artificial ankle joint; Z98.890 Other specified postprocedural states
CPT/HCPCS: 73610